=== PATIENT | male | born 1955 | race Caucasian/White ===

== ENCOUNTER 2017-02-09 10:34 | Emergency (ER) | payer OTHER ==
[~2017-02-09] VITALS: Ht 175.3 cm; Wt 117.9 kg
[2017-02-09] MEDS ORDERED: TERB250T57 (10:49)
[2017-02-09] MEDS ORDERED: AXIR30SO (10:49)
[2017-02-09 12:01] LABS: BASO % 0.5 % (0.0-1.0); EOS # 0.1 K/mm3 (0.0-0.50); EOS % 2.7 % (0.0-3.0); LARGE UNSTAINED CELL # 0.1 K/mm3 (0.0-0.4); LARGE UNSTAINED CELL % 1.2 % (0.0-4.0); LYMPH # 0.9 K/mm3 (1.5-4.5); LYMPH % 19.7 % (24.0-44.0); MEAN CORPUSCULAR HEMOGLOBIN 29.7 pg (27.0-33.0); MEAN CORPUSCULAR HGB CONC 33.3 g/dl (32.0-36.5); MEAN CORPUSCULAR VOLUME 89.3 fl (80.0-96.0); MONO # 0.3 K/mm3 (0.0-0.8); MONO % 6.1 % (0.0-5.0); NEUTROPHILS # 3.1 K/mm3 (1.8-7.7); NEUTROPHILS % 69.8 % (36.0-66.0); PLATELET COUNT, AUTOMATED 151 k/mm3 (150-450); RED CELL DISTRIBUTION WIDTH 13.3 % (11.5-14.5); WHITE BLOOD COUNT 4.4 K/mm3 (4.0-10.0)
--- NOTE | 2017-02-09 12:23 | REP ---
Chest two views HISTORY: Syncope Comparison: None The lungs are clear. The heart is normal in size. The pulmonary vasculature is normal in appearance. The bony structure is intact. IMPRESSION: No acute disease. Signed by Juan Mcclellan MD 02/09/2017 12:14 P
[2017-02-09 12:33] LABS: ANION GAP 6 MEQ/L (8-16); BLOOD UREA NITROGEN 16 MG/DL (7-18); CALCIUM LEVEL 8.7 MG/DL (8.8-10.2); CARBON DIOXIDE LEVEL 31 MEQ/L (21-32); CHLORIDE LEVEL 102 MEQ/L (98-107); CREATININE FOR GFR 1.04 MG/DL (0.70-1.30); GLOMERULAR FILTRATION RATE > 60.0 (>49); GLUCOSE, FASTING 90 MG/DL (80-110); POTASSIUM SERUM 4.1 MEQ/L (3.5-5.1); SODIUM LEVEL 139 MEQ/L (136-145)
--- NOTE | 2017-02-09 14:25 | REP ---
CT Head without contrast HISTORY: Syncope COMPARISON: 05/23/2016 There is no intraparenchymal hemorrhage, acute infarct, mass or midline shift. The ventricular system and cortical sulci are dilated consistent with minimal volume loss. There is no extra cerebral collection. There is no fracture. The visualized sinuses are clear. IMPRESSION: Minimal volume loss. Signed by Juan Mcclellan MD 02/09/2017 02:16 P
[2017-02-09 15:30] VITALS: BP 160/80
--- NOTE | 2017-02-10 11:50 | ECGEPIP ---
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
== END 2017-02-09 15:32 | disposition home or self-care (01) ==
LOC: M ED 11:26
DX: R55 Syncope and collapse (principal); V47.5XXA Car driver injured in collision with fixed or stationary object in traffic accident, initial encounter; Y92.410 Unspecified street and highway as the place of occurrence of the external cause; Y93.89 Activity, other specified; Y99.9 Unspecified external cause status; E29.1 Testicular hypofunction; Z86.73 Personal history of transient ischemic attack (TIA), and cerebral infarction without residual deficits; Z79.899 Other long term (current) drug therapy

== ENCOUNTER 2019-01-11 03:34 | Emergency (ER) | payer OTHER ==
[~2019-01-11] VITALS: Ht 175.3 cm; Wt 115.7 kg
[~2019-01-11 03:34] MED LIST: AXIR30SO; TERB250T12
[2019-01-11] MEDS ORDERED: ASPI81CH33 (03:52)
[2019-01-11] MEDS ORDERED: LISI-1046 (03:52)
[2019-01-11] MEDS ORDERED: CARV6.25 (03:52)
[2019-01-11] MEDS ORDERED: NASA1SPR NARES (03:52)
[2019-01-11] MEDS ORDERED: VIMP100T (03:52)
[2019-01-11] MEDS ORDERED: FURO20TA2 (03:52)
[2019-01-11] MEDS ORDERED: BRIL90TA (03:52)
[2019-01-11] MEDS ORDERED: ATOR80TA59 (03:52)
[2019-01-11] MEDS ORDERED: TEST30SO3 (03:52)
[2019-01-11 03:55] LABS: BASO % 0.6 % (0.0-1.0); EOS # 0.3 10^3/uL (0.0-0.50); EOS % 4.6 % (0.0-3.0); HEMOGLOBIN 14.4 g/dl (13.5-17.5); LYMPH # 1.4 10^3/uL (1.5-4.5); LYMPH % 25.8 % (24.0-44.0); MEAN CORPUSCULAR HEMOGLOBIN 29.4 pg (27.0-33.0); MEAN CORPUSCULAR HGB CONC 32.7 g/dl (32.0-36.5); MEAN CORPUSCULAR VOLUME 89.8 fl (80.0-96.0); MONO # 0.4 10^3/uL (0.0-0.8); MONO % 7.8 % (0.0-5.0); NEUTROPHILS # 3.3 10^3/uL (1.8-7.7); PLATELET COUNT, AUTOMATED 152 10^3/uL (150-450); WHITE BLOOD COUNT 5.4 10^3/uL (4.0-10.0)
[2019-01-11 04:06] LABS: INR 1.02; PROTHROMBIN TIME 13.5 SECONDS (12.1-14.4)
[2019-01-11 04:07] LABS: PARTIAL THROMBOPLASTIN TIME 30.5 SECONDS (25.4-37.6)
[2019-01-11 04:48] LABS: BLOOD UREA NITROGEN 16 MG/DL (7-18); CALCIUM LEVEL 8.3 MG/DL (8.8-10.2); CARBON DIOXIDE LEVEL 30 MEQ/L (21-32); CHLORIDE LEVEL 107 MEQ/L (98-107); CPK CREATINE PHOSPHOKINASE 90 U/L (39-308); CREATININE FOR GFR 1.16 MG/DL (0.70-1.30); GLOMERULAR FILTRATION RATE > 60.0 (>49); GLUCOSE, FASTING 94 MG/DL (70-100); MB/CK RELATIVE INDEX 1.33 (< OR =4); POTASSIUM SERUM 4.7 MEQ/L (3.5-5.1); SODIUM LEVEL 141 MEQ/L (136-145); TROPONIN I 0.05 NG/ML (< 0.10)
--- NOTE | 2019-01-11 06:57 | REP ---
Clinical: Chest pain. Comparison: 02/09/2017. Findings: Mediastinum and cardiac silhouette are normal. Subtle left lower lobe opacity may reflect element of atelectasis versus chronic change. No obvious effusion. No pneumothorax. Skeletal structures intact. Impression: Cannot exclude subtle acute atelectasis versus chronic changes at the left base. Electronically Signed by Kaveh Ruiz MD 01/11/2019 06:49 A
[2019-01-11 10:46] LABS: MB/CK RELATIVE INDEX 1.78 (< OR =4); TROPONIN I 0.04 NG/ML (< 0.10)
[2019-01-11] MEDS ORDERED: [UNRECOGNIZED DRUG - REMARK] (11:42)
[2019-01-11 11:48] VITALS: BP 126/72
--- NOTE | 2019-01-11 19:13 | ECGEPIP ---
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
--- NOTE | 2019-01-11 19:17 | ECGEPIP ---
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
== END 2019-01-11 12:21 | disposition home or self-care (01) ==
LOC: M ED 03:34 → EDBD 03:34 → M ED 12:21
DX: R06.00 Dyspnea, unspecified (principal); R00.1 Bradycardia, unspecified; R56.9 Unspecified convulsions; I10 Essential (primary) hypertension; I21.9 Acute myocardial infarction, unspecified; I25.2 Old myocardial infarction; Z79.82 Long term (current) use of aspirin; Z79.890 Hormone replacement therapy; Z82.49 Family history of ischemic heart disease and other diseases of the circulatory system; Z95.9 Presence of cardiac and vascular implant and graft, unspecified

== ENCOUNTER 2019-03-01 10:18 | Outpatient (RCR) | payer OTHER ==
--- NOTE | 2019-02-11 14:36 | CARECAPL ---
Assessment Account #s: Initial Assessment General Diagnoses: Stent Date of event: Dec 19, 2018 Physician: Jaleel Venegas Allergies: Coded Allergies: No Known Allergies (Unverified , 02/09/17) Date Entered Program: Feb 11, 2019 Risk strat for cardiac event: Low Exercise Date: Feb 11, 2019 Assessment: Initial Assessment Exercise Prescription Plan TO EDUCATE AND BUILD ENDURANCE THROUGH MONITORED EXERCISE Modalities initiated: Treadmill (WILL ADD), Nustep (WILL ADD), Arm Aerometer (WILL ADD), Dumbells (WILL ADD), Recumbent Bike (WILL ADD) Frequency: 3 Duration (Minutes) 30-60 minutes total exercise a day. 10-15 work intervals in minutes. 5 MIN PRN rest intervals in minutes. Functional Capacity Goal Sustained Metabolic Equivalent of a task (MET) goal of 2.75-3.25 for 15-20 minutes. Intensity: 3-Moderate Progression (METS) Increase by: 0.5 METS every: 3-5 sessions Angina with ex: No Target Heart Rate 95-126 AGE PREDICTED Resistance Training: Yes Weight (pounds): 2 Reps: 12-15 Hypertension: Yes Hypertension controlled with: Medication Resting 133/75 Medications Scheduled PRN Triamcinolone Acetonide (Nasacort), 2 SPRAY NARES DAILYPRN PRN for CONGESTION, (Reported) Miscellaneous Medications Aspirin (Aspirin), (Reported) Atorvastatin Calcium (Atorvastatin Calcium), (Reported) Carvedilol (Carvedilol), (Reported) Furosemide (Furosemide), (Reported) Lacosamide (Vimpat), (Reported) Lisinopril (Lisinopril), (Reported) Terbinafine HCl (Terbinafine HCl), (Reported) Testosterone (Axiron), (Reported) Testosterone (Testosterone), (Reported) Ticagrelor Base (Brilinta), (Reported) Durable Medical Equipment [cardiac rehab], DOSE, (DME) Med Change: No Intervention Resistance Training: Yes Education: Self pulse, Ex safety, S/S to report, Low NA diet, BP medication, RPE Scale, Equipment orientation, warm up/cool down, Understand BP, Physical Active Target Goals Individual exercise Rx (1) BP 140/90 or 130/80 if DM or CKD (1) Aerobic active 30+min 5 days per week (1) Nutrition Date: Feb 11, 2019 Assessment: Initial Assessment Lipid- med/supplement ATORVASTATIN Med Change: No Diabetes Diabetes: No Monitor Blood Sugar at home: No Medication Change: No Blood sugar in range: No Weight Management Weight (lbs): 250.2 Height (inches): 70 Waist Circumference (Inches): 46 BMI: 35.9 Special Diet: low salt, low-fat Alcohol: none Diet Access Tool: Rate your plate Score: 55 Current Weight (pounds): 250.2 Intervention Manager Sales Consult: No Nurse/patient discussion: Yes Dietary Goals TO MAKE BETTER HEART HEALTHY CHOICES Diet Class: Yes Referral to Diabetes education: No Referral to lipid clinic: No Referral to weight mangement p: No Education Eating Healthy Target goal LDL-C<100 if triglycerides are >200 Non-HDL-C should be <130 (1) LDL-C<70 for high risk patients (4) HbA1c<7% (1) BMI<25 Waist cir<40in M/<35in F (1) Education Date: Feb 11, 2019 Assessment: Initial Assessment Learning Barriers: ready Knowledge Test Score: 6 Family Support: Yes Tobacco use: No Tobacco Use Smokeless tobacco: No Intervention Referral to smoking cessation: No Individual education and couns: No Tobacco Adjunct: No Education class schedule given: No Attended education classes: No Education: CAD, Risk factors, med compliance, cardiac A&P, Angina S/S, Sexuality Target Goals Complete cessation of tobacco use (1). Psychosocial Date: Feb 11, 2019 Assessment: Initial Assessment Psych Test (Initial/Discharge) Tool Used: CESD Score: 6 Intervention Physician Consult: No Physician Referral: No Med Change: No Stress Management Class: No Uses Stress Management Skills: Yes Education Education: Coping Techniques, S/S depression, Relaxation Techniques Target Goal Assess presence or absence of depression using a valid screening tool (1). Maximize coping skills (2). Positive support system (2). Patient/Program Goal Preventative Medication: Yes Aspirin, Yes FIDEL Inhibitor, Yes Statin/OTR lipid Lowering Fall Risk Assess: Yes (NOT A FALL RISK) Provider Assessment Session Number: 1 Provider Assessment: Proceed with rehab Bandar Lyles RN Feb 11, 2019 14:36
[~2019-03-01 10:18] MED LIST changes: +ASPI81CH33; +ATOR80TA59; +BRIL90TA; +CARV6.25; +FURO20TA2; +LISI-1046; +NASA1SPR NARES; +TEST30SO3; +VIMP100T; +[UNRECOGNIZED DRUG - REMARK]
== END 2019-03-03 ==
LOC: M CR 10:18
DX: Z98.61 Coronary angioplasty status (principal)

== ENCOUNTER 2019-03-27 10:33 | Outpatient (RCR) | payer OTHER ==
--- NOTE | 2019-03-14 17:23 | CARECAPL ---
Assessment Account #s: Re-Assessment I General Diagnoses: Stent Date of event: Dec 19, 2018 Physician: Jaleel Venegas Allergies: Coded Allergies: No Known Allergies (Unverified , 02/09/17) Date Entered Program: Feb 11, 2019 Risk strat for cardiac event: Low Exercise Date: Mar 14, 2019 Assessment: Re-Assessment I Exercise Prescription Plan TO EDUCATE AND BUILD ENDURANCE THROUGH MONITORED EXERCISE Modalities initiated: Treadmill (METS=3.26/RPE=4), Nustep (METS=2.7/RPE=4), Arm Aerometer (METS=3.0/RPE=3), Dumbells (3#/RPE=3), Recumbent Bike (METS=4.1/RPE=3) Frequency: 3 Duration (Minutes) 30-60 minutes total exercise a day. 12-15 work intervals in minutes. 5 MIN NEEDED rest intervals in minutes. Functional Capacity Goal Sustained Metabolic Equivalent of a task (MET) goal of 3.25 -4.0 for 15-20 minutes. Intensity: 3-Moderate Progression (METS) Increase by: METS every: sessions Angina with ex: No Target Heart Rate 95-126 AGE PREDICTED Resistance Training: Yes Weight (pounds): 3 Reps: 12-15 Hypertension: Yes Hypertension controlled with: Medication Resting 138/82 Peak Exercise BP 190/96 Medications Scheduled PRN Triamcinolone Acetonide (Nasacort), 2 SPRAY NARES DAILYPRN PRN for CONGESTION, (Reported) Miscellaneous Medications Aspirin (Aspirin), (Reported) Atorvastatin Calcium (Atorvastatin Calcium), (Reported) Carvedilol (Carvedilol), (Reported) Furosemide (Furosemide), (Reported) Lacosamide (Vimpat), (Reported) Lisinopril (Lisinopril), (Reported) Terbinafine HCl (Terbinafine HCl), (Reported) Testosterone (Axiron), (Reported) Testosterone (Testosterone), (Reported) Ticagrelor Base (Brilinta), (Reported) Durable Medical Equipment [cardiac rehab], DOSE, (DME) Current BP 122/78 Med Change: No Intervention Education: Self pulse, Ex safety, S/S to report, Low NA diet, BP medication, RPE Scale, Equipment orientation, warm up/cool down, Understand BP, Physical Active Target Goals Individual exercise Rx (1) BP 140/90 or 130/80 if DM or CKD (1) Aerobic active 30+min 5 days per week (1) Nutrition Date: Mar 14, 2019 Assessment: Re-Assessment I Lipid- med/supplement ATORVASTATIN Med Change: No Diabetes Diabetes: No Monitor Blood Sugar at home: No Medication Change: No Blood sugar in range: No Weight Management Weight (lbs): 250.2 Special Diet: low salt, low-fat Current Weight (pounds): 250.2 Intervention Mid Level Net Developer Consult: No Nurse/patient discussion: Yes Dietary Goals TO MAKE HEART HEALTHY CHOICES/SMALLER PORTIONS Diet Class: Yes (WILL SEE COATER ASSOCIATE WHILE IN PROGRAM) Referral to Diabetes education: No Referral to lipid clinic: No Referral to weight mangement p: No Education Eating Healthy Target goal LDL-C<100 if triglycerides are >200 Non-HDL-C should be <130 (1) LDL-C<70 for high risk patients (4) HbA1c<7% (1) BMI<25 Waist cir<40in M/<35in F (1) Education Date: Mar 14, 2019 Assessment: Re-Assessment I Learning Barriers: ready Family Support: Yes Tobacco use: No Tobacco Use Smokeless tobacco: No Intervention Referral to smoking cessation: No Individual education and couns: No Tobacco Adjunct: No Education class schedule given: No Attended education classes: No Education: CAD, Risk factors, med compliance, cardiac A&P, Angina S/S, Sexuality Target Goals Complete cessation of tobacco use (1). Psychosocial Date: Mar 14, 2019 Assessment: Re-Assessment I Intervention Physician Consult: No Physician Referral: No Med Change: No Stress Management Class: No Uses Stress Management Skills: Yes Education Education: Coping Techniques, S/S depression, Relaxation Techniques Target Goal Assess presence or absence of depression using a valid screening tool (1). Maximize coping skills (2). Positive support system (2). Patient/Program Goal Preventative Medication: Yes Aspirin, Yes FIDEL Inhibitor, Yes Statin/OTR lipid Lowering Fall Risk Assess: Yes (NOT A FALL RISK) Provider Assessment Session Number: 5 Provider Assessment: Proceed with rehab Bandar Lyles RN Mar 14, 2019 17:23
== END 2019-04-03 ==
LOC: M CR 10:33
DX: Z98.61 Coronary angioplasty status (principal)

== ENCOUNTER 2019-05-03 11:17 | Outpatient (RCR) | payer OTHER ==
--- NOTE | 2019-04-10 10:42 | CARECAPL ---
Assessment Account #s: Re-Assessment II General Diagnoses: Stent Date of event: Dec 19, 2018 Physician: Jaleel Venegas Allergies: Coded Allergies: No Known Allergies (Unverified , 02/09/17) Date Entered Program: Feb 11, 2019 Risk strat for cardiac event: Moderate Exercise Date: Apr 10, 2019 Assessment: Re-Assessment II Exercise Prescription Plan to build endurance and strength through a monitored exercise program and to educate about cardiac risk factors Modalities initiated: Treadmill (2.7/1.0 mts 3.44 rpe 3 15 minutes), Arm Aerometer (2.0 mts 1.06 rpe 3 10 minutes), Dumbells, Recumbent Bike (r2R2 mts 3.2 rpe 4 8 minutes) Frequency: 3 Duration (Minutes) minutes total exercise a day. work intervals in minutes. rest intervals in minutes. Functional Capacity Goal Sustained Metabolic Equivalent of a task (MET) goal of 4-5.0 for 15-20 minutes. Intensity: 3-Moderate Progression (METS) Increase by: METS every: sessions Angina with ex: No Resistance Training: Yes Weight (pounds): 3 Reps: 8-12 Medications Scheduled PRN Triamcinolone Acetonide (Nasacort), 2 SPRAY NARES DAILYPRN PRN for CONGESTION, (Reported) Miscellaneous Medications Aspirin (Aspirin), (Reported) Atorvastatin Calcium (Atorvastatin Calcium), (Reported) Carvedilol (Carvedilol), (Reported) Furosemide (Furosemide), (Reported) Lacosamide (Vimpat), (Reported) Lisinopril (Lisinopril), (Reported) Terbinafine HCl (Terbinafine HCl), (Reported) Testosterone (Axiron), (Reported) Testosterone (Testosterone), (Reported) Ticagrelor Base (Brilinta), (Reported) Durable Medical Equipment [cardiac rehab], DOSE, (DME) Current BP 108/80 Med Change: No Intervention Home exercise: Type (walking, hand weight, join local gym) Resistance Training: Yes Education: Self pulse (location and timing), Ex safety (hydration, don't use cell phone, ), S/S to report (dizziness, chest pain, abnormal SOB or other pain), Low NA diet (diet modifications), BP medication (taking medications prior to exercise), RPE Scale (how to assess effort), Equipment orientation (review of use of equipment), warm up/cool down (to prevent injury and help v/s to return to baseline), Understand BP, Physical Active (importance of continuing ) Education Goals Met: No (progressing toward goals) Target Goals Individual exercise Rx (1) BP 140/90 or 130/80 if DM or CKD (1) Aerobic active 30+min 5 days per week (1) Nutrition Date: Apr 10, 2019 Assessment: Re-Assessment II Current Weight (pounds): 248 Weight Goal 225 Intervention Sewer Maintenance Supervisor Consult: Yes Nurse/patient discussion: Yes Education Eating Healthy Education Goals Met: No (progressing toward goals) Target goal LDL-C<100 if triglycerides are >200 Non-HDL-C should be <130 (1) LDL-C<70 for high risk patients (4) HbA1c<7% (1) BMI<25 Waist cir<40in M/<35in F (1) Education Date: Apr 10, 2019 Assessment: Re-Assessment II Intervention Education class schedule given: Yes Attended education classes: Yes Education: CAD (risk factors and effect on body), med compliance (importance for healthy heart), Angina S/S (reporting) Education Goals Met: No (progressing toward goals) Target Goals Complete cessation of tobacco use (1). Psychosocial Date: Apr 10, 2019 Assessment: Re-Assessment II Stress Management Class: Yes Uses Stress Management Skills: Yes Education Education: Relaxation Techniques (reviewed) Education Goals Met: No (progressing toward goals- comes to cardiac rehab works very hard and had an excellent attitude) Target Goal Assess presence or absence of depression using a valid screening tool (1). Maximize coping skills (2). Positive support system (2). Provider Assessment Session Number: 13 Provider Assessment: No changes Dorothy Morin RN Apr 10, 2019 10:42
--- NOTE | 2019-05-08 11:01 | CARECAPL ---
Assessment Account #s: Re-Assessment II (III) General Diagnoses: Stent Date of event: Dec 19, 2018 Allergies: Coded Allergies: No Known Allergies (Unverified , 02/09/17) Date Entered Program: Feb 11, 2019 Risk strat for cardiac event: Moderate Exercise Assessment: Re-Assessment II (III) Stages of change: action Exercise Prescription Modalities initiated: Treadmill (2.7/2.5 mts 4.19 rpe 4 15 minutes), Nustep (L6 mts 5.0 rpe 4 12 minutes), Arm Aerometer (3.5 mts 4.0 rpe 4 10 minutes), Dumbells, Recumbent Bike (L3 mts 2.6 rpe 4 10 minutes) Duration (Minutes) 30 - 60 minutes total exercise a day. 15 - 20 work intervals in minutes. PRN rest intervals in minutes. Functional Capacity Goal Sustained Metabolic Equivalent of a task (MET) goal of 5.0-6.0 for 15-20 minutes. Progression (METS) Increase by: METS every: sessions Angina with ex: No Resistance Training: Yes Weight (pounds): 4 Reps: 8-12 Resting 138/78 Peak Exercise BP 158/98 Medications Scheduled PRN Triamcinolone Acetonide (Nasacort), 2 SPRAY NARES DAILYPRN PRN for CONGESTION, (Reported) Miscellaneous Medications Aspirin (Aspirin), (Reported) Atorvastatin Calcium (Atorvastatin Calcium), (Reported) Carvedilol (Carvedilol), (Reported) Furosemide (Furosemide), (Reported) Lacosamide (Vimpat), (Reported) Lisinopril (Lisinopril), (Reported) Terbinafine HCl (Terbinafine HCl), (Reported) Testosterone (Axiron), (Reported) Testosterone (Testosterone), (Reported) Ticagrelor Base (Brilinta), (Reported) Durable Medical Equipment [cardiac rehab], DOSE, (DME) Current BP 118/80 Med Change: No Intervention Home exercise: Type (walking, home exercise equipment), Frequency (3-5 times per week), Duration (30-60 minutes) Resistance Training: Yes Education Goals Met: No (see prior ITP for full education description. Education continues throughout program. Progressing toward goals) Target Goals Individual exercise Rx (1) BP 140/90 or 130/80 if DM or CKD (1) Aerobic active 30+min 5 days per week (1) Nutrition Date: May 08, 2019 Assessment: Re-Assessment II (III) Stages of change: Contemplate Diabetes Diabetes: No Current Weight (pounds): 248 Weight Goal 225 Intervention Nurse/patient discussion: Yes (discussed low NA, low fat, ) Diet Class: No (will see family educator this program) Education Goals Met: No (progressing toward goals) Target goal LDL-C<100 if triglycerides are >200 Non-HDL-C should be <130 (1) LDL-C<70 for high risk patients (4) HbA1c<7% (1) BMI<25 Waist cir<40in M/<35in F (1) Education Date: May 08, 2019 Assessment: Re-Assessment II (III) Intervention Attended education classes: Yes Education Goals Met: No Target Goals Complete cessation of tobacco use (1). Psychosocial Date: May 08, 2019 Assessment: Re-Assessment II (III) Stress Management Class: Yes Uses Stress Management Skills: Yes Education Goals Met: No (see prior ITP for full education given to pt) Target Goal Assess presence or absence of depression using a valid screening tool (1). Maximize coping skills (2). Positive support system (2). Provider Assessment Session Number: 20 Provider Assessment: No changes (excellent attendance. 3x per week, good add itude toward exercise and his health in general. A pleasure [facility] at [facility]) Dorothy Morin RN May 08, 2019 11:01
== END 2019-05-04 ==
LOC: M CR 11:17
PROVIDERS: ATTEND Internal Medicine Cardiovascular Disease
DX: Z98.61 Coronary angioplasty status (principal)

== ENCOUNTER 2019-05-20 12:46 | Outpatient (RCR) | payer OTHER ==
--- NOTE | 2019-05-20 15:28 | CARECAPL ---
Assessment Account #s: Discharge General Diagnoses: Stent Date of event: Dec 19, 2018 Physician: Jaleel Venegas Allergies: Coded Allergies: No Known Allergies (Unverified , 02/09/17) Date Entered Program: Feb 11, 2019 Risk strat for cardiac event: Moderate Exercise Date: May 20, 2019 Assessment: Followup/Discharge Stages of change: maintenance Exercise Prescription Modalities initiated: Treadmill (2.7/2.5 mts 4.19 rpe 3 15 minutes), Arm Aerometer (3.5 mts 4.4 rpe 4 10 minutes), Dumbells, Recumbent Bike (R2 mts 3.2 rpe 3 10 minutes) Frequency: 3 Duration (Minutes) 30 - 60 minutes total exercise a day. 15 - 20 work intervals in minutes. PRN rest intervals in minutes. Functional Capacity Goal Sustained Metabolic Equivalent of a task (MET) goal of for minutes. Intensity: 3-Moderate Progression (METS) Increase by: METS every: sessions Resistance Training: Yes Weight (pounds): 6 Reps: 8-12 Hypertension: Yes Hypertension controlled with: Medication Resting 138/80 Peak Exercise BP 152/90 Meds see below Medications Scheduled PRN Triamcinolone Acetonide (Nasacort), 2 SPRAY NARES DAILYPRN PRN for CONGESTION, (Reported) Miscellaneous Medications Aspirin (Aspirin), (Reported) Atorvastatin Calcium (Atorvastatin Calcium), (Reported) Carvedilol (Carvedilol), (Reported) Furosemide (Furosemide), (Reported) Lacosamide (Vimpat), (Reported) Lisinopril (Lisinopril), (Reported) Terbinafine HCl (Terbinafine HCl), (Reported) Testosterone (Axiron), (Reported) Testosterone (Testosterone), (Reported) Ticagrelor Base (Brilinta), (Reported) Durable Medical Equipment [cardiac rehab], DOSE, (DME) Education Goals Met: Yes (see prior ITP for education covered. ) Target Goals Individual exercise Rx (1) BP 140/90 or 130/80 if DM or CKD (1) Aerobic active 30+min 5 days per week (1) Nutrition Date: May 20, 2019 Assessment: Followup/Discharge Stages of change: maintenance Med Change: No Weight Management Weight (lbs): 243.8 Height (inches): 70 Waist Circumference (Inches): 49 BMI: 34.9 Weight goal: 200 Diet Access Tool: Rate your plate Score: 57 Intervention Diet Class: Yes Education Goals Met: Yes Target goal LDL-C<100 if triglycerides are >200 Non-HDL-C should be <130 (1) LDL-C<70 for high risk patients (4) HbA1c<7% (1) BMI<25 Waist cir<40in M/<35in F (1) Education Date: May 20, 2019 Assessment: Followup/Discharge Knowledge Test Score: 7 Stages of change: action Family Support: Yes Tobacco use: No Intervention Attended education classes: Yes Education Goals Met: Yes Target Goals Complete cessation of tobacco use (1). Psychosocial Date: May 20, 2019 Assessment: Followup/Discharge Psych Test (Initial/Discharge) Tool Used: Other (minimal depression) Score: 2 Stress Management Class: Yes Uses Stress Management Skills: Yes Education Goals Met: Yes Target Goal Assess presence or absence of depression using a valid screening tool (1). Maximize coping skills (2). Positive support system (2). Provider Assessment Session Number: 25 Provider Assessment: Please add/change: (discharge-excellent attendance and worked hard during program.) Dorothy Morin RN May 20, 2019 15:28
== END 2019-06-03 ==
LOC: M CR 12:46
PROVIDERS: ATTEND Internal Medicine Cardiovascular Disease
DX: Z98.61 Coronary angioplasty status (principal)

== ENCOUNTER 2021-02-22 12:47 | Emergency (ER) | payer BC, MEDICARE, OTHER ==
[~2021-02-22] VITALS: Ht 175.3 cm; Wt 104.5 kg
[~2021-02-22 12:47] MED LIST changes: -LISI-1046; +LISI2.5T2
[2021-02-22 15:54] LABS: BASO % 0.5 % (0.0-1.0); EOS # 0.1 10^3/uL (0.0-0.5); EOS % 0.7 % (0.0-3.0); HEMATOCRIT 43.3 % (42.0-52.0); HEMOGLOBIN 14.2 g/dl (13.5-17.5); LYMPH # 1.1 10^3/uL (1.5-5.0); LYMPH % 14.8 % (24.0-44.0); MEAN CORPUSCULAR HEMOGLOBIN 29.3 pg (27.0-33.0); MEAN CORPUSCULAR HGB CONC 32.8 g/dl (32.0-36.5); MEAN CORPUSCULAR VOLUME 89.5 fl (80.0-96.0); MONO # 0.5 10^3/uL (0.0-0.8); MONO % 6.5 % (2.0-8.0); NEUTROPHILS # 5.8 10^3/uL (1.5-8.5); NEUTROPHILS % 77.2 % (36.0-66.0); PLATELET COUNT, AUTOMATED 152 10^3/uL (150-450); RED BLOOD COUNT 4.84 10^6/uL (4.30-6.10); WHITE BLOOD COUNT 7.4 10^3/uL (4.0-10.0)
--- NOTE | 2021-02-22 15:54 | ECGEPIP ---
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
[2021-02-22 16:15] VITALS: BP 114/71
[2021-02-22 16:20] LABS: BLOOD UREA NITROGEN 15 MG/DL (7-18); CALCIUM LEVEL 9.1 MG/DL (8.8-10.2); CARBON DIOXIDE LEVEL 32 MEQ/L (21-32); CHLORIDE LEVEL 105 MEQ/L (98-107); CK-MB VALUE MASS 1.5 NG/ML (<3.6); CPK CREATINE PHOSPHOKINASE 71 U/L (39-308); CREATININE FOR GFR 0.84 MG/DL (0.70-1.30); GLOMERULAR FILTRATION RATE > 60.0 (>49); GLUCOSE, FASTING 96 MG/DL (70-100); MB/CK RELATIVE INDEX 2.11 (< OR =4); SODIUM LEVEL 139 MEQ/L (136-145); TROPONIN I < 0.02 NG/ML (< 0.10)
[2021-02-22] MEDS ORDERED: VIMP150T PO (16:42)
== END 2021-02-22 17:00 | disposition home or self-care (01) ==
LOC: M ED 12:47
DX: G40.909 Epilepsy, unspecified, not intractable, without status epilepticus (principal); I10 Essential (primary) hypertension; I25.2 Old myocardial infarction; Z79.899 Other long term (current) drug therapy; Z79.82 Long term (current) use of aspirin

== ENCOUNTER 2024-05-30 13:54 | Emergency (ER) | payer MEDICARE ==
[~2024-05-30] VITALS: Ht 177.8 cm; Wt 97.7 kg
[~2024-05-30 13:54] MED LIST changes: -LISI2.5T2; +LISI2.5T9; -TERB250T12; +TERB250T91; +VIMP150T PO
[2024-05-30] MEDS ORDERED: CARV3.12 PO (14:25)
[2024-05-30] MEDS ORDERED: TAMS1CAP17 (14:25)
[2024-05-30] MEDS ORDERED: ISOVUE-370 76% 100ML VIAL As Ordered ONE (14:27)
[2024-05-30 14:44] LABS: BASO % 0.3 % (0.0-1.0); EOS # 0.1 10^3/uL (0.0-0.5); HEMOGLOBIN 15.1 g/dl (13.5-17.5); LYMPH # 1.3 10^3/uL (1.5-5.0); LYMPH % 9.2 % (24.0-44.0); MEAN CORPUSCULAR HEMOGLOBIN 30.4 pg (27.0-33.0); MEAN CORPUSCULAR HGB CONC 33.6 g/dl (32.0-36.5); MEAN CORPUSCULAR VOLUME 90.5 fl (80.0-96.0); MONO # 0.6 10^3/uL (0.0-0.8); NEUTROPHILS # 11.5 10^3/uL (1.5-8.5); NEUTROPHILS % 84.1 % (36.0-66.0); PLATELET COUNT, AUTOMATED 155 10^3/uL (150-450); RED BLOOD COUNT 4.97 10^6/uL (4.30-6.10); WHITE BLOOD COUNT 13.6 10^3/uL (4.0-10.0)
[2024-05-30] MEDS: ONDANSETRON 4MG 2ML VIAL IV ONE (15:40)
[2024-05-30] MEDS: MORPHINE 4 MG/ML 1ML VIAL IV ONE ×2 (15:42→17:37)
[2024-05-30 17:45] VITALS: BP 148/73; TEMP 97.6; O2SAT 98
== END 2024-05-30 17:45 | disposition short-term general hospital (02) ==
LOC: M ED 13:54 → EDBD 13:54 → M ED 17:45
DX: S06.6X0A Traumatic subarachnoid hemorrhage without loss of consciousness, initial encounter (principal); S12.120A Other displaced dens fracture, initial encounter for closed fracture; S12.000A Unspecified displaced fracture of first cervical vertebra, initial encounter for closed fracture; S22.42XA Multiple fractures of ribs, left side, initial encounter for closed fracture; S42.321A Displaced transverse fracture of shaft of humerus, right arm, initial encounter for closed fracture; G40.909 Epilepsy, unspecified, not intractable, without status epilepticus; S22.060A Wedge compression fracture of T7-T8 vertebra, initial encounter for closed fracture; W17.89XA Other fall from one level to another, initial encounter; M50.321 Other cervical disc degeneration at C4-C5 level; M50.322 Other cervical disc degeneration at C5-C6 level; M50.323 Other cervical disc degeneration at C6-C7 level; M25.78 Osteophyte, vertebrae; Z79.02 Long term (current) use of antithrombotics/antiplatelets; Z79.811 Long term (current) use of aromatase inhibitors; Z79.899 Other long term (current) drug therapy; Y92.018 Other place in single-family (private) house as the place of occurrence of the external cause; Y93.89 Activity, other specified; Y99.9 Unspecified external cause status; Z86.73 Personal history of transient ischemic attack (TIA), and cerebral infarction without residual deficits
CPT/HCPCS: 70450; 71045; 71260; 72125; 73080; 80047; 85025; 93005; 93041; 94760; 96374; 96375; 96376; 99285; J2405; Q9967